=== PATIENT | female | born 1975 | race Asian ===

== ENCOUNTER → 2017-10-02 | Day surgery (SDC) | payer OTHER ==
[~2017-10-02] VITALS: Ht 162.6 cm; Wt 54.4 kg
--- NOTE | 2017-10-06 09:39 | Operative Report ---
Operative/Inv Procedure Report Surgery Date: 10/02/17 Name of Procedure: Diagnostic laparoscopy aspiration of cul-de-sac fluid Pre-Operative Diagnosis: Pelvic mass pelvic pain Post-Operative Diagnosis: Ruptured ovarian cyst adenomyosis the uterus endometriosis and same Estimated Blood Loss: less than 50ml Surgeon/Hand Fretted Instrument Maker: Ivania Mancilla MD Anesthesia: general endotracheal tube Operative/Procedure Note Note: Procedure note patient was taken the operating room placed supine position after adequate anesthesia patient placed in dorsolithotomy position the vagina from dorsal fashion bladder was catheterized examination under anesthesia performed Ware cannula was placed into the cervix patient tolerated that well. At this point surgeon regowned and gloved level the umbilicus stab incision was made with a Veress needle there was a negative drop test the abdomen was insufflated possibly fully Z CO2 to liver edge dullness which point the Veress needle was removed. A 10 mm trocar was inserted atraumatically after the incision at the umbilicus had been extended to 1 cm through that sheath a laparoscope was placed under direct visualization a 5 mm port was placed 2 finger breadths of symptoms pubis in midline patient tolerated that well on at this point the fluid was aspirated sent to pathology pictures were taken maximal CO2 was removed from the abdomen on since removed from the abdomen the incision the umbilicus oversewn using 0 Marcaine was injected underneath skin on the skin incisions were closed using 30 patient tolerated that well I at the end of the case the Ware cannula was moved the [place] was removed wants was removed from the vagina the patient was awakened from anesthesia and returned spine position and extubated and transferred recovery room awake alert with counts correct Findings: 3 50 mL of serosanguineous fluid in the cul-de-sac uterus 10-12 weeks size are retroverted ovaries appeared normal endometriosis implants on the bladder reflection uterus consistent with adenomyosis
== END ==
LOC: STS 01:55
DX: N83.209 Unspecified ovarian cyst, unspecified side (principal); N80.0 Endometriosis of uterus; R10.2 Pelvic and perineal pain
CPT/HCPCS: 81025; 88305; J0131; J1100; J1885; J2250; J2405